=== PATIENT | male | born 1990 | race Caucasian/White ===

== ENCOUNTER 2024-10-09 11:08 | Emergency (ER) | payer SELFPAY ==
[2024-10-09] VITALS (7 sets, daily range): BP systolic 127–152; BP diastolic 77–94; PULSE 64–82; RESP 16–18; TEMP 36.9; O2SAT 98–100; BMI 28.5
--- NOTE | 2024-10-09 11:35 | DI.RAD.S_ITS ---
PROCEDURE: XR SHOULDER RT MIN 2V INDICATIONS: Trip and fall with shoulder pain TECHNIQUE: 2 views of the shoulder were acquired. COMPARISON: None. FINDINGS: Bones: No fractures or dislocations. No suspicious bony lesions. Visualized ribs appear intact. Soft tissues: No suspicious soft tissue calcifications. IMPRESSION: No acute right shoulder fracture or dislocation. Dictated by: Vazquez Hernandez M.D. on 10/09/2024 at 12:14 Approved by: Vazquez Hernandez M.D. on 10/09/2024 at 12:14
--- NOTE | 2024-10-09 12:00 | PC.NURSE ---
Right shoulder pain with ROM. Ice pack provided.
--- NOTE | 2024-10-09 13:03 | ED.UPPEXIN ---
HPI - Extremity Injury (Upper) General Chief Complaint: Extremity Injury, Upper Stated Complaint: Possible dislocated Right shoulder Time Seen by Provider: 10/09/24 11:46 Source: patient Mode of arrival: Ambulatory History of Present Illness HPI narrative: 33-year-old male he tripped and fell down and possibly dislocated his right shoulder earlier today. He fell from a ground level. Currently he is neurovascularly intact. He says he might have dislocated and then relocated his shoulder and currently has some pain with abduction as well as adduction. Related Data Allergies Allergy/AdvReac Type Severity Reaction Status Date / Time Penicillins Allergy Hives Verified 10/09/24 11:27 Review of Systems Review of Systems ROS Unobtainable: All systems reviewed & are unremarkable except as noted in HPI and below Patient History Smoking Status: Current every day smoker tobacco type: vaping Exam Narrative Exam Narrative: General: Patient appears to be in no acute distress, acting appropriately Head: normocephalic, atraumatic, HEENT: Pupils equal round reactive, eyes tracking well, neck supple, no JVD Heart: regular rate and rhythm, no murmurs, rubs, or gallops heard Lungs: clear to auscultation, no adventitious sounds Abdomen: soft , nontender, nondistended, positive bowel sounds Neurological: no focal neurological signs, moving all extremities well, alert and oriented x3, Psych: good judgment ,good insight, mood is normal. right shoulder exam: Good range of motion but has some pain with abduction and adduction., neurovascularly intact. Initial Vital Signs Initial Vital Signs: Vital Signs Temperature 98.5 F 10/09/24 11:26 Pulse Rate 82 10/09/24 11:26 Respiratory Rate 16 10/09/24 11:26 Blood Pressure 127/78 10/09/24 11:26 Pulse Oximetry 100 10/09/24 11:26 Oxygen Delivery Method Room Air 10/09/24 11:26 Course Course Course Narrative: Patient remained stable during his course here Orders Ordered: ED Orders 10/09/24 11:35 XR shoulder RT 2+ views Stat Vital Signs Vital signs: Vital Signs - 8 hr 10/09/24 11:26 Temperature 98.5 F Pulse Rate 82 Respiratory Rate 16 Blood Pressure 127/78 Pulse Oximetry 100 Oxygen Delivery Method Room Air MDM - Extremity Injury (Upper) Differential Diagnosis Differential diagnosis: Likely dislocation of shoulder, fracture of humerus and other (shoulder sprain ) MDM Narrative Medical decision making narrative: Patient appears stable upon physical examination, x-ray of the right shoulder show no acute dislocation or fracture. Patient put in a shoulder sling and feels comfortable. Patient will be discharged and follow up with Orthopedic surgery as needed. Discharge Plan Departure Patient Disposition: Home Clinical Impression: Shoulder sprain Qualifiers: Encounter type: initial encounter Shoulder sprain type: unspecified sprain Laterality: right Qualified Code(s): S43.401A - Unspecified sprain of right shoulder joint, initial encounter Instructions: DI for Shoulder Sprain Activity Restrictions/Additional Instructions: Keep sling on for now for the next week, can ice, can elevate, can use some compression and follow up with Orthopedic surgery this week. X-rays show no sign of acute fracture or dislocation. Referrals: Kimo Mayfield MD [Physician, Orthopedic Surgery] Stand Alone Forms: Patient Portal/API
[2024-10-09] MEDS: IBUPROFEN 400 MG TABLET 600 MG PO (13:12)
== END 2024-10-09 13:18 | disposition home or self-care (01) ==
PROVIDERS: Emergency Provider Family Medicine
DX: S43.401A Unspecified sprain of right shoulder joint, initial encounter (principal); W18.30XA Fall on same level, unspecified, initial encounter
CPT/HCPCS: 73030; 99283